=== PATIENT | female | born 1955 | race Caucasian/White ===

== ENCOUNTER 2025-04-25 08:52 | Inpatient (IN) | payer MEDICARE, OTHER ==
[~2025-04-25] VITALS: Ht 170.2 cm; Wt 70.3 kg
[2025-04-25] MEDS ORDERED: SIME80TA15 PO (10:08)
[2025-04-25] MEDS ORDERED: DONE5TAB34 PO (10:08)
[2025-04-25] MEDS ORDERED: MAG30ORA PO (10:08)
[2025-04-25] MEDS ORDERED: ATEN50TA PO (10:08)
[2025-04-25] MEDS ORDERED: SENN8.6T19 PO (10:08)
[2025-04-25] MEDS ORDERED: ACET325T53 PO (10:08)
[2025-04-25] MEDS ORDERED: AMLO-212 PO (10:08)
[2025-04-25] MEDS ORDERED: MECL-159 PO (10:08)
[2025-04-25] MEDS ORDERED: LOSA25TA27 PO (10:08)
[2025-04-25] MEDS ORDERED: LEVO50TA8 PO (10:08)
[2025-04-25] MEDS ORDERED: DOCU100C36 PO (10:08)
[2025-04-25 11:16] LABS: PLATELET COUNT (AUTO) 285 K/uL (150-450); RED BLOOD CELL COUNT(AUTO) 5.19 MIL/uL (4.0-5.2); RED CELL DISTRIBUTION WIDTH 15.4 % (11.5-15.0); WHITE BLOOD COUNT (AUTO) 7.2 K/uL (4.3-11.0)
[2025-04-25 11:20] LABS: APPEARANCE,URINE CLEAR (CLEAR); BLOOD, URINE NEGATIVE Ery/uL (NEGATIVE); LEUKOCYTE ESTERASE ,URINE TRACE (NEGATIVE); NITRITE, URINE NEGATIVE (NEGATIVE); UGLUCOSE NEGATIVE (NEGATIVE)
[2025-04-25 11:25] LABS: ADD URINE CULTURE YES; HYALINE CASTS, URINE Few /LPF (None Seen); SQUAMOUS EPITHELIAL CELL,UR None Seen /HPF (None Seen)
[2025-04-25 11:35] LABS: CALCIUM, SERUM 9.1 mg/dL (8.5-10.1); CREATININE 0.8 mg/dL (0.6-1.3); SODIUM SERUM 141 mmol/L (136-145); UREA NITROGEN, BLOOD 22 mg/dL (7-18)
[2025-04-25 11:41] LABS: ALCOHOL, BLOOD < 3 mg/dL (0-10); TOTAL PROTEIN, SERUM 8.0 g/dL (6.4-8.2)
[2025-04-25 11:43] LABS: AMPHETAMINE, URINE NEGATIVE (NEGATIVE); BARBITURATE, URINE NEGATIVE (NEGATIVE); BENZODIAZEPINE, URINE NEGATIVE (NEGATIVE); CANNABINOID, URINE NEGATIVE (NEGATIVE); COCCAINE, URINE NEGATIVE (NEGATIVE); OPIATE, URINE NEGATIVE (NEGATIVE)
[2025-04-25 11:54] LABS: ASPARTATE AMINOTRANSFERASE 30 U/L (15-37)
[2025-04-25 12:30] VITALS: BP 144/103; TEMP 98.7; O2SAT 99
[2025-04-25] MEDS ORDERED: ZOLPIDEM TARTRATE 5 MG TABLET PO PRN (13:00)
[2025-04-25] MEDS ORDERED: MAG HYDROX/AL HYDROX/SIMETH 30 ML UDC PO PRN ×2 (13:00)
[2025-04-25] MEDS ORDERED: SIMETHICONE 80 MG TAB.CHEW PO PRN (13:00)
[2025-04-25] MEDS ORDERED: MECLIZINE HCL 25 MG TABLET PO PRN (13:00)
[2025-04-25] MEDS ORDERED: ACETAMINOPHEN 325 MG TABLET PO PRN (13:00)
[2025-04-25] MEDS ORDERED: QUETIAPINE FUMARATE 25 MG TABLET PO PRN (13:00)
[2025-04-25] MEDS ORDERED: MAGNESIUM HYDROXIDE 30 ML UDC PO PRN (13:00)
[2025-04-25] MEDS: BLOOD SUGAR DIAGNOSTIC 1 EACH STRIP IN ONE (14:31)
[2025-04-25] MEDS: DOCUSATE SODIUM 100 MG CAPSULE PO SCH (14:33)
[2025-04-25 16:00] VITALS: BP 144/94; TEMP 98.1; O2SAT 97
[2025-04-25] MEDS: ACETAMINOPHEN 325 MG TABLET PO PRN (17:03)
[2025-04-25] MEDS: AMLODIPINE BESYLATE 5 MG TABLET PO SCH (17:04)
[2025-04-25 20:56] VITALS: BP 139/82; TEMP 98.3; O2SAT 98
[2025-04-25] MEDS: ATENOLOL 50 MG TABLET PO SCH (21:35)
[2025-04-25] MEDS: DONEPEZIL 5 MG TABLET PO SCH (21:35)
[2025-04-26] MEDS: LEVOTHYROXINE SODIUM 50 MCG TABLET PO SCH (06:33)
[2025-04-26 08:00] VITALS: BP 109/89; TEMP 98.1; O2SAT 97
[2025-04-26 08:12] LABS: ASPARTATE AMINOTRANSFERASE 25.0 U/L (15-37); CALCIUM, SERUM 9.2 mg/dL (8.5-10.1); CREATININE 0.9 mg/dL (0.6-1.3); SODIUM SERUM 144.0 mmol/L (136-145); TOTAL PROTEIN, SERUM 8.3 g/dL (6.4-8.2); UREA NITROGEN, BLOOD 25.0 mg/dL (7-18)
[2025-04-26 08:23] LABS: LDL 153.0 mg/dL (0-99)
[2025-04-26 08:32] VITALS: BP 144/80
[2025-04-26] MEDS: LOSARTAN POTASSIUM 25 MG TABLET PO SCH (08:35)
[2025-04-26] MEDS: SENNOSIDES 8.6 MG TABLET PO SCH (08:35)
[2025-04-26] MEDS ORDERED: OLANZAPINE ZYDIS 5 MG TAB.RAPDIS PO PRN (11:00)
[2025-04-26] MEDS: SERTRALINE HCL 25 MG TABLET PO SCH (11:57)
[2025-04-26] MEDS: DIVALPROEX SODIUM 125 MG TABLET.DR PO SCH (11:57)
[2025-04-26 15:00] VITALS: BP 129/84; TEMP 98.7; O2SAT 97
[2025-04-26 20:04] VITALS: BP_SYST 132; BP_SYST 152; BP_DIAS 81; TEMP 98.6; O2SAT 96
[2025-04-26] MEDS: OLANZAPINE 10 MG TABLET PO SCH (21:12)
[2025-04-27 08:00] VITALS: BP 174/106; TEMP 97.3; O2SAT 96
[2025-04-27 20:24] VITALS: BP 132/71; TEMP 98.2; O2SAT 97
[2025-04-28 08:00] VITALS: BP 143/80; TEMP 98.6; O2SAT 99
[2025-04-28 16:00] VITALS: BP 143/83; TEMP 98.8; O2SAT 99
[2025-04-28 20:00] VITALS: BP 127/69; TEMP 98.1; O2SAT 95
[2025-04-28] MEDS: DIVALPROEX SODIUM 125 MG TABLET.DR PO SCH (21:48)
[2025-04-29 08:00] VITALS: BP 169/91; TEMP 98.7; O2SAT 99
[2025-04-29] MEDS: SERTRALINE HCL 50 MG TABLET PO SCH (08:43)
[2025-04-29 16:00] VITALS: BP 163/85; TEMP 98.6; O2SAT 98
[2025-04-29 20:26] VITALS: BP 158/96; TEMP 98.6; O2SAT 97
[2025-04-30 08:32] VITALS: BP 159/89; TEMP 97.7; O2SAT 99
[2025-04-30 16:00] VITALS: BP 130/79; TEMP 98.2; O2SAT 94
[2025-04-30 20:30] VITALS: BP 144/85; TEMP 98.2; O2SAT 96
[2025-05-01 08:00] VITALS: BP 161/83; TEMP 97.7; O2SAT 98
[2025-05-01 15:38] VITALS: BP 160/85; TEMP 98; O2SAT 98
[2025-05-01 20:00] VITALS: BP 116/62; TEMP 97.9; O2SAT 96
[2025-05-02 08:00] VITALS: BP 166/90; TEMP 98.7; O2SAT 98
[2025-05-02 16:00] VITALS: BP 148/92; TEMP 97.8; O2SAT 98
[2025-05-02] MEDS: DIVALPROEX SODIUM 250 MG TABLET.DR PO SCH (21:28)
[2025-05-02 21:58] VITALS: BP 134/72; TEMP 97.8; O2SAT 98
[2025-05-03 08:26] VITALS: BP 155/81; TEMP 97.7; O2SAT 97
[2025-05-03 15:50] VITALS: BP 158/82; TEMP 98.1; O2SAT 98
[2025-05-03 20:00] VITALS: BP 127/83; TEMP 97.9; O2SAT 95
[2025-05-03] MEDS: OLANZAPINE 2.5 MG TABLET PO SCH (21:45)
[2025-05-04 08:00] VITALS: BP 160/96; TEMP 97.7; O2SAT 97
[2025-05-04 16:00] VITALS: BP 154/79; TEMP 98.8; O2SAT 95
[2025-05-05 08:00] VITALS: BP 148/79; TEMP 98.6; O2SAT 94
[2025-05-05 08:55] VITALS: BP 148/79
== END 2025-05-05 13:35 | DRG 885 ==
LOC: ER 09:14 → GPS 12:03
PROVIDERS: ADMIT Psychiatry & Neurology Psychiatry; ATTEND Student in an Organized Health Care Education/Training Program
DX: F31.9 Bipolar disorder, unspecified (principal); E11.9 Type 2 diabetes mellitus without complications; E03.9 Hypothyroidism, unspecified; I10 Essential (primary) hypertension; E78.5 Hyperlipidemia, unspecified; R41.89 Other symptoms and signs involving cognitive functions and awareness; R79.89 Other specified abnormal findings of blood chemistry; Z79.890 Hormone replacement therapy; Z79.899 Other long term (current) drug therapy
CPT/HCPCS: 36415; 80048-TC; 80053-TC; 80061-TC; 80076-TC; 80164-TC; 81001; 82962-TC; 84443-TC; 85025-TC; 87081-TC; 87086-TC; G0480